=== PATIENT | male | born 1970 | race Caucasian/White ===

== ENCOUNTER 2021-01-26 16:00 | Outpatient (RCR) | payer OTHER, SELFPAY ==
--- NOTE | 2020-12-14 14:56 | HP.OTEVAL ---
Patient's Visit Information RICARDA PIERCE is a 50 year old M, referred to Occupational Therapy by Dr. Addi English MD, with a diagnosis of left biceps tendon rupture. Date of Evaluation: 12/14/20 Occupational Therapist: Jael Pinzon, ANNIER/Mireya, CHT - Subjective This 50 year old male was seen for OT eval with dx of left Distal biceps rupture. Pt states DOI was on September 30 2020, and sx was on October 13 2020. pt states injury happened while at work . pt states he is struggling with limited forearm supination - pt states his left LF and RF are feeling week and hurts in his hand. pt states this happened about 2 weeks ago. pt states he was in a splint for about two weeks. pt would like to return to his PLOF- pt works for [employer] and has not returned to work. pt returns to on December 23. - Pain left elbow/forearm 0 Pain Intensity Range: 5 - ROM Elbow: right +5/140 left +5/145 Forearm: right supination 50 left 25 left pronation WNL but painful Wrist: right 75/70 left 65/ 45 - [employer]: right 90# left 25# noted increased wrist extension with manager security and safety Lateral Pinch: right 24# left 18# Tripod Pinch: right 20# left 12# - Sensation Sensation Comments: states tingling resolved - Quick DASH-Disab of Arm,Shoulder& Hand Quick DASH Score: 51.6650 - Goals Goal:: pt will demo a left manager security and safety strength increase by 30# or greater to increase pts ind. with ADLs and IADLs by d/c Goal:: pt will demo left forearm supination equal to unaffected forearm to increase pts ind. with ADLs and IADLs by d/c Goal:: pt will report no pain in left forearm, wrist greater than 1/10 with use of ADls and IADLS by d/c Goal:: pt will demo understanding of scar mtg by end of 2nd visit - Rehabilitation General Assessment: pt is 8 weeks 6 days s/p distal biceps tendon repair and demonstrates limited forearm supination and pain with forearm sup/pronation- pt is still on 5# lift restriction. pt limited with ADls and IADLs due to the above restriction and limitations. Pt would benefit from skilled OT services 2-3x week for 6 weeks to assist in pt to return to his PLOF. Today therapist ed. pt on AROM and AAROM to increase pts functional forearm supination /pronation. pt demo understanding and agree to POC. Rehabilitation Potential: Good - Anticipated Interventions A/AAROM/PROM, Strengthening, Scar Care, Triggerpoint Release, Education re Diagnosis - Visit Plan Frequency: 2-3x /Week Duration: 4 Weeks TEXT: Thank you for the opportunity to evaluate your patient. For Medicare and Medicare HMO plans, please review the plan of care and approve it. It will need to be FAXED BACK to us at [phone] for Medicare purposes. Please let me know if there are questions or concerns regarding this plan of care. Physician Signature: Date:
--- NOTE | 2020-12-21 07:59 | HP.OTREVAL ---
Dr. Addi English MD, It has been my pleasure to treat RICARDA PIERCE over the last 4 visits for left biceps tendon rupture. Please see the progress note below for an update on the occupational therapy plan of care! Subjective: pt arrives states no pain with shoe tie- pt reports less pain with ROM. pt 9 weeks 4 days s/p from distal biceps tendon repair. Objective/Function: pt demo with left forearm supination at 45* increase from 25* ( pt is only 5* from what unaffected arm). wrist 70/50 this has increased each session. pt has made good gains with his ADLs reporting he is able to open jar lids, tie shoes and reports no pain with Bathing/dressing. Plan Frequency: 2-3x /Week Duration: 4 Weeks Plan: will cont with ROM until DrKevin release pt for further tx. 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 with ADLs and IADLs by d/c Goal:: pt will demo left forearm supination equal to unaffected forearm to increase pts ind. with ADLs and IADLs by d/c Goal:: pt will report no pain in left forearm, wrist greater than 1/10 with use of ADls and IADLS by d/c Goal:: pt will demo understanding of scar mtg by end of 2nd visit Anticipated Interventions Anticipated Interventions: A/AAROM/PROM, Strengthening, Scar Care, Triggerpoint Release, Education re Diagnosis Please do not hesitate to contact me at [phone] by phone or if you have questions or concerns regarding this new plan of care! Sincerely, Jael Pinzon, OTR/L, CHT
--- NOTE | 2021-01-26 16:45 | HP.OTDCSUM_ITS ---
It has been my pleasure to treat RICARDA PIERCE under orders from Dr. Addi English MD, for the diagnosis of left biceps tendon rupture for a total of 12 visit(s). Please see the following information for a summary of their discharge status. % Improvement: 90 Objective/Function: Pt seemed happy after receiving the new HEP. Therapist remeasured sup/pron: WFL/WFL with no pain, ext/flex: 60*/75*, fitness assistant: 80#, Lateral pinch: 18#, and 3-jaw jovanna pinch: 18#. Therapist also conducted MMT on biceps: 4+/5, triceps: 5/5, and shoulder: 5/5, 5/5. Patient Goals: Regain Mobility, Decrease Pain, Use Hand/Wrist/Arm Normally Again Goal:: pt will demo a left fitness assistant strength increase by 30# or greater to increase pts ind. with ADLs and IADLs by d/c Goal:: pt will demo left forearm supination equal to unaffected forearm to increase pts ind. with ADLs and IADLs by d/c Goal:: pt will report no pain in left forearm, wrist greater than 1/10 with use of ADls and IADLS by d/c Goal:: pt will demo understanding of scar mtg by end of 2nd visit Plan: D/c today Discharge Comments: Pt was seen for 12 visits to to increase ROM and strength in the LUE after a biceps repair. Pt reported a 90% improvement in strength ROM, a decrease in over pain, and reported an increase in IND in ADLs and IADLs. Pt understands to continue with home exercise program and to follow doctor's restrictions. pt has met OT goals Pt agrees with d/c. If there are questions or concerns regarding this patient's occupational therapy, please fell free to call me at [phone]. Thank you for the referral of this patient. Sincerely, Jael Pinzon, OTR/L, CHT
== END 2021-01-26 19:00 | disposition home or self-care (01) ==
LOC: OT 16:00
PROVIDERS: PCP Internal Medicine; Referring Provider Orthopaedic Surgery; Visit Provider Orthopaedic Surgery
DX: S46.212D Strain of muscle, fascia and tendon of other parts of biceps, left arm, subsequent encounter (principal); M79.632 Pain in left forearm
CPT/HCPCS: 97035; 97110; 97140; 97166; 97530

== ENCOUNTER 2021-12-19 16:42 | Emergency (ER) | payer OTHER, SELFPAY ==
[2021-12-19 16:43] VITALS: BP 163/101; PULSE 88; RESP 18; TEMP 36.6; O2SAT 93; BMI 43.7
[2021-12-19 17:14] VITALS: O2SAT 97
--- NOTE | 2021-12-19 17:22 | EDS_ITS ---
HPI History of Present Illness Chief Complaint: Shortness of Breath Informant: patient Onset/Context/Timing Onset: Days (4) Context: gradual Timing: Continuous Quality: Positive for - (Tightness) Worsened by: - (Laying around) Relieved by: - (Walking outside) Associated Symptoms Negative for cough, rhinorrhea, ear pain, fever, sore throat, chills, clear sputum, white sputum, yellow sputum or green sputum Chest Pain: Positive for Dull Narrative Narrative: Patient presents with shortness of breath that has been gradually getting worse over the last 4 days. Patient describes as a tightness in his chest. Patient states is actually better when he went outside and walk through his neighborhood. Patient states it is worse whenever he just lays around the house. Patient admits to some mild dull pain in his chest. Patient denies any fevers or chills. Patient denies any cough. Patient admits to nausea but denies any vomiting. Patient states he tested positive for COVID-19 approximately 6 days ago. Patient has been using [id number] guaifenesin, Tylenol, and ibuprofen which has been helping with some of his symptoms. PFSH PFS Medical History (Updated 12/19/21 @ 19:[address] Vargas Ugalde DO) Rupture of distal biceps tendon Medical History no medical history Home Medications chlorhexidine gluconate [Peridex] 15 ml MM BID 06/04/17 [History Last Taken Unknown] albuterol sulfate [Ventolin HFA] 1 - 2 puff INHALATION Q4H PRN PRN #1 inhaler 12/19/21 [Rx Last Taken Unknown] Allergy/AdvReac Type Severity Reaction Status Date / Time No Known Allergies Allergy Verified 12/19/21 16:45 Family History no significant family his Surgical History (Updated 12/19/21 @ 17:[address] Vargas Ugalde DO) History of repair of ACL Social History Smoking Status: Former smoker ROS ROS ED Constitutional Constitutional ED: Denies chills or fever(s) Eyes Eyes: Denies blurry vision or change in vision ENT ENT ED: Denies rhinorrhea or sore throat Cardiovascular Cardiovascular: Reports chest pain; Denies palpitations Respiratory/Chest Respiratory/Chest: Reports dyspnea; Denies cough Gastrointestinal Gastrointestinal: Reports nausea; Denies vomiting Genitourinary Genitourinary ED: Denies dysuria or hematuria Musculoskeletal Musculoskeletal: Denies back pain or neck pain Integumentary Reports rash; Denies abscess Neurologic Neurologic: Denies headache(s) or weakness Allergic/Immunologic Allergic/Immunologic ED: Denies mouth swelling or urticaria EXAM Physical Exam Const Vital Signs: 12/19/21 16:43 12/19/21 17:14 12/19/21 18:06 Temperature 97.9 F Temperature Source Temporal Pulse Rate 88 78 Respiratory Rate 18 14 Respiratory Effort Short of Breath Respiratory Depth Normal Respiratory Pattern Normal Blood Pressure 163/101 H Blood Pressure Mean 121 Pulse Ox 93 94 Oxygen Delivery Method Room Air Room Air Room Air 12/19/21 19:36 Temperature Temperature Source Pulse Rate 75 Respiratory Rate 16 Respiratory Effort Respiratory Depth Respiratory Pattern Blood Pressure Blood Pressure Mean Pulse Ox 93 Oxygen Delivery Method Room Air Positive well nourished and well developed General Appearance ED: well developed HEENT Reports moist mucous membranes Neck supple and no JVD Resp normal respiratory effort and clear to auscultation bilaterally Cardio regular rate, regular rhythm and no murmurs GI normal to inspection, nondistended, normoactive bowel sounds and non-tender Palpation: soft Extremity normal to inspection General Extremety ED: Negative for edema or tenderness General Extremity: Negative for edema Neuro oriented x3, CN's II-XII intact bilaterally and no sensory deficits noted Sensorium / Orientation: alert Motor Exam: strength 5/5 throughout Psych mental status grossly normal Skin no rashes or lesions noted MDM MDM MDM Narrative Medical decision making narrative: Patient was given a DuoNeb aerosol here. CBC was within normal limits. Comprehensive metabolic profile was within normal limits. Portable 1 view chest x-ray was obtained. On my interpretation, lung tierney are clear. There is borderline cardiomegaly. Bony thorax is normal. There is no acute process noted. Radiologist also interpreted the x-ray and agrees. Patient was advised of his findings. Patient was given a prescription for albuterol inhaler. Patient was instructed to follow-up with his primary care physician in 5 to 7 days. Patient understood and was agreeable with the plan. All questions were answered. Lab Data Attestation: I reviewed the patient's lab results. Labs: Laboratory Results - last 24 hr 12/19/21 12/19/21 17:10 17:10 WBC 6.4 RBC 4.84 Hgb 14.9 Hct 42.7 MCV 88.2 MCH 30.8 MCHC 34.9 RDW Std Deviation 39.8 RDW Coeff of [place] 12.3 Plt Count 191 MPV 10.3 Immature Gran % (Auto) 0.900 Neut % (Auto) 58.5 Lymph % (Auto) 28.3 [place] % (Auto) 10.1 H Eos % (Auto) 1.6 Baso % (Auto) 0.6 Absolute Neuts (auto) 3.8 Absolute Lymphs (auto) 1.82 Nucleated RBC % 0 Sodium 140 Potassium 3.4 L Chloride 108 H Carbon Dioxide 23.0 Anion Gap 9 BUN 10 Creatinine 0.97 Estim Creat Clear Calc 88.07 Est GFR (MDRD) Af Amer 105 Est GFR (MDRD) Non-Af 86 BUN/Creatinine Ratio 10.4 Glucose 113 H Calcium 9.1 Total Bilirubin 1.00 AST 41 H ALT 84 H Alkaline Phosphatase 90 Total Protein 7.4 Albumin 3.9 Globulin 3.5 Albumin/Globulin Ratio 1.1 Radiography Chest X-Ray - ED: 1 View, Read by ED Physician, Read by Radiologist, No Acute Disease and Cardiomegaly (Borderline) Diagnostic Testing: Clinical Impression(s) from Imaging Studies Chest X-Ray 12/19/21 17:50 IMPRESSION: Borderline cardiomegaly without acute pulmonary disease. Electronically Signed: Myles Westfall DO at 18:59 EDT Reading Location ID and State: [address] [place] [address] Tel [phone], Service support , Discharge Plan Triage Chief Complaint: Shortness of Breath ED Provider: Vargas Ugalde Dx/Rx/DC Orders Clinical Impression: COVID-19 Instructions: Coronavirus Disease 2019 (COVID-19): Caring for Yourself or Others Prescriptions: New albuterol sulfate [Ventolin HFA] 1 INHALER inhaler 1 - 2 puff inhalation Q4H PRN PRN (Reason: Wheezing) Qty: 1 RF: 0 No Action chlorhexidine gluconate [Peridex] 15 ML mouthwash 15 ml MM BID RF: 0 Primary Care Provider: Laxmi Roberson Referrals: Laxmi Roberson MD [Primary Care Provider] - 3-5 Days Disposition Disposition: Home, Self Care
--- NOTE | 2021-12-19 17:50 | RAD_ITS ---
STUDY: X-RAY CHEST REASON FOR EXAM: Male, 51 years old. Dyspnea. Day 8 of COVID. Patient states I feel like I can''t breathe. TECHNIQUE: Single AP portable view of the chest. COMPARISON: None. FINDINGS: The lungs are clear and expanded. There is no demonstrated pleural abnormality. There is borderline cardiomegaly. Normal mediastinum and elizabeth. Normal visualized pulmonary arteries. Normal visualized aortic arch and descending thoracic aorta. Normal visualized thoracic spine. Normal visualized ribs, clavicles, and shoulders. There is no demonstrated abnormality of the visualized soft tissue structures of the upper abdomen. RAD/Chest 1 View (Portable) IMPRESSION: Borderline cardiomegaly without acute pulmonary disease. Electronically Signed: Myles Westfall DO at 18:59 EDT ,
[2021-12-19 17:58] LABS: Absolute Lymphocyte Count 1.82 X10^3/uL (0.83-4.51); Absolute Neutrophil Count 3.8 X10^3/uL (2.0-7.7); Basophil# 0.04 X10^3/uL; Basophil% 0.6 % (0-1); Eosinophils% 1.6 % (0-5); Hematocrit 42.7 % (40-54); Hemoglobin 14.9 g/dL (13.0-16.5); Lymphocyte # 1.82 X10^3/ul (0.83-4.51); Lymphocyte % 28.3 % (19-41); Mean Corp Hgb Conc 34.9 g/dL (32-36); Mean Corpuscular Hgb 30.8 pg (27.0-32.0); Mean Corpuscular Volume 88.2 fL (80-94); Mean Platelet Vol. 10.3 fl (6.2-12.0); Monocyte# 0.65 X10^3/uL; Monocyte% 10.1 % (0-10); NRBC Flagged by Analyzer 0 % (0-5); Neutrophil # 3.75 X10^3/uL (2.7-7.7); Neutrophil % 58.5 % (47-70); Platelet Count 191 K/mm3 (150-450); RBC Distribution Width CV 12.3 % (11.6-14.6); RBC Distribution Width SD 39.8 fl (35.1-43.9); Red Blood Count 4.84 M/mm3 (4.6-6.2); White Blood Count 6.4 K/mm3 (4.4-11.0)
[2021-12-19] MEDS: Ipratropium/Albuterol Sulfate 3 ML AMPUL.NEB INHALATION (18:02)
[2021-12-19 18:06] VITALS: PULSE 78; RESP 14; O2SAT 94
[2021-12-19 18:22] LABS: ALB/GLOB Ratio 1.1 RATIO (0.9-2.4); AST(SGOT) 41 U/L (15-37); Alanine Aminotransfer ALT/SGPT 84 U/L (16-61); Albumin, Serum 3.9 g/dL (3.2-5.0); Alkaline Phosphatase 90 U/L (45-117); Anion Gap 9 (5-15); BUN 10 mg/dL (7-18); BUN/Creat Ratio 10.4 RATIO (10-20); Calcium,Total 9.1 mg/dL (8.5-10.1); Chloride 108 mmol/L (98-107); Creatinine, Serum 0.97 mg/dL (0.70-1.30); EST Glomerular Filtration Rate 86 mL/min (>60); Est Glom Filt Rate - Afr Amer 105 mL/min (>60); Estimated Creatinine Clearance 88.07 ml/min; Globulin 3.5 g/dL (2.2-4.2); Glucose 113 mg/dL (74-106); Potassium 3.4 mmol/L (3.5-5.1); Protein, Total 7.4 g/dL (6.4-8.2); Sodium Level 140 mmol/L (136-145)
[2021-12-19 19:36] VITALS: PULSE 75; RESP 16; O2SAT 93
[2021-12-19 20:06] VITALS: BP 118/60; PULSE 81; RESP 16; O2SAT 95
== END 2021-12-19 20:07 | disposition home or self-care (01) ==
PROVIDERS: Emergency Provider Emergency Medicine; PCP Internal Medicine; Visit Provider Emergency Medicine
DX: U07.1 COVID-19 (principal); Z87.891 Personal history of nicotine dependence
CPT/HCPCS: 71045; 80053; 85025; 94640; 99284; A4216

== ENCOUNTER → 2022-01-20 | Outpatient (CLI) | payer OTHER, SELFPAY ==
--- NOTE | 2022-01-20 13:39 | PFTCOMP ---
COMPLETE PULMONARY FUNCTION TEST INTERPRETATION Brief HPI: Patient is a 51-year-old male, currently under the care of Dr. Roberson, who presents to [facility] for complete pulmonary function tests secondary to diagnosis of dyspnea. Respiratory therapist reports good effort and reproducible results. Patient was significant difficulty during testing leading to syncopal episodes Interpretation: Forced expiration spirometry shows no large airways obstructive ventilatory defect with an FEV1 of 90% predicted. There is no significant bronchodilator response by strict ATS criteria. Spirograms are of good quality and plateau slowly, indicating slowly emptying areas of the lungs. The respiratory flow volume loop shows decreased expiratory flow rates at high lung volumes consistent with small airways obstruction. Lung volumes by body plethysmography show a normal total lung capacity at 5.94 L, 91% predicted. All other lung volumes are within normal limits. Diffusion capacity by carbon monoxide is normal at 95% predicted. The airway resistance is normal. No previous pulmonary function tests were available for review. Impression: These pulmonary function tests are grossly within normal limits, but do have some stigmata of small airways disease. Patient with significant difficulty related to syncope with testing.
== END | disposition home or self-care (01) ==
PROVIDERS: PCP Internal Medicine; Referring Provider Internal Medicine; Visit Provider Internal Medicine
DX: R06.02 Shortness of breath (principal); R06.00 Dyspnea, unspecified
CPT/HCPCS: 94060; 94726; 94729

== ENCOUNTER → 2022-03-03 | Outpatient (CLI) | payer OTHER, SELFPAY | END | disposition home or self-care (01) | PROVIDERS: PCP Internal Medicine; Visit Provider Internal Medicine Critical Care Medicine | DX: G47.10 Hypersomnia, unspecified (principal) | CPT/HCPCS: 95810 ==

== ENCOUNTER → 2022-03-10 | Outpatient (CLI) | payer OTHER, SELFPAY ==
--- NOTE | 2022-03-10 12:42 | ECHOD_ITS ---
Reason For Study: DYSPNEA/SOB Procedure This was a 2D Doppler, Color Flow transthoracic echocardiogram. The study was technically difficult. Exam performed in department. Left Ventricle Based upon the 2D echocardiographic and contrast enhanced images obtained there appears to be grossly normal left ventricular size, wall motion, and systolic function. The estimated ejection fraction is 55 %. No evidence for diastolic dysfunction. Right Ventricle Normal RV size. Normal systolic function. Atria Normal left atrium. Normal right atrium. No doppler evidence for ASD. Mitral Valve There is no mitral annular calcification. Normal mitral valve. Mild (1+) eccentric mitral valve insufficiency. Tricuspid Valve Normal tricuspid valve. Mild tricuspid valve insufficiency. Right ventricular systolic pressure estimated to be 28 mmHg. Aortic Valve The aortic valve is not well visualized. Mild focal aortic valve calcification. Pulmonic Valve The pulmonic valve is not well visualized. Trivial pulmonic valve insufficiency. Great Vessels The aortic root is not well visualized. Pericardium/Pleural No pericardial effusion. MMode/2D Measurements & Calculations LVIDd: 5.2 cm IVSd: 1.2 cm LAV(MOD-bp): 79.8 ml LVIDs: 3.8 cm LVPWd: 1.1 cm LAV(MOD-bp) Indexed: 34.0 ml/m2 RVDd: 4.3 cm FS: 26.9 % LAV(MOD-sp2): 78.2 ml LAV(MOD-sp4): 71.9 ml EDV(MOD-sp4): 151.1 ml EDV(MOD-sp2): 157.8 ml SV(MOD-sp4): 86.0 ml ESV(MOD-sp4): 65.1 ml ESV(MOD-sp2): 67.5 ml EF(MOD-sp4): 56.9 % EF(MOD-sp2): 57.2 % SV(MOD-sp2): 90.2 ml LA dimension(2D): 4.6 cm LA A4 area: 23.3 cm2 RA A4 area: 22.5 cm2 Time Measurements MV dec time: 0.21 sec Doppler Measurements & Calculations MV E max juni: 93.3 cm/sec Lat Peak E' Juni: 12.2 cm/sec Med Peak E' Juni: 11.7 cm/sec MV A max juni: 50.7 cm/sec E/E' lat: 7.6 E/E' med: 8.0 MV E/A: 1.8 MV dec slope: 445.4 cm/sec2 Ao V2 max: 128.1 cm/sec LV V1 max: 104.2 cm/sec Ao max P.6 mmHg LV V1 max P.3 mmHg Ao V2 mean: 85.0 cm/sec LV V1 mean P.2 mmHg Ao mean P.4 mmHg LV V1 mean: 69.4 cm/sec Ao V2 VTI: 28.6 cm LV V1 VTI: 23.2 cm PA V2 max: 113.4 cm/sec TR max juni: 247.8 cm/sec TR max P.6 mmHg ECHO/Echo Complete Interpretation Summary The study was technically difficult. Based upon the 2D echocardiographic and contrast enhanced images obtained there appears to be grossly normal left ventricular size, wall motion, and systolic function. The estimated ejection fraction is 55 %. Mild (1+) eccentric mitral valve insufficiency. Mild tricuspid valve insufficiency. Mild focal aortic valve calcification. Trivial pulmonic valve insufficiency. Right ventricular systolic pressure estimated to be 28 mmHg. No evidence for diastolic dysfunction. Ordering Physician: Marshall Mooney Referring Physician: Laxmi Roberson Performed By: Margaret Yuen, RDUSHA, RVT
== END | disposition home or self-care (01) ==
LOC: CVS 12:41
PROVIDERS: PCP Internal Medicine; Referring Provider Internal Medicine Critical Care Medicine; Visit Provider Internal Medicine Critical Care Medicine
DX: R06.02 Shortness of breath (principal)
CPT/HCPCS: 93306